=== PATIENT | male | born 1970 | race Caucasian/White ===

== ENCOUNTER 2020-04-08 14:15 | Emergency (ER) | payer BC ==
[2020-04-08] MEDS ORDERED: Adenosine 6 MG/2 ML SDV IVPUSH ONE ×2 (14:25→15:48)
[2020-04-08] MEDS ORDERED: Aspirin 81 MG Tab.Chew PO ONE (14:27)
[2020-04-08 14:58] LABS: ANION GAP 16.3 mEq/L (7-13); CHLORIDE,CL 103 mmol/L (98-107); SODIUM,NA 139 mmol/L (136-145)
[2020-04-08] MEDS ORDERED: Diltiazem IR 30 MG Tab PO ONE (15:33)
[2020-04-08] MEDS ORDERED: Sodium Chloride 0.9% 1,000 ML IV ONE (15:51)
[2020-04-08] MEDS ORDERED: Sodium Chloride 0.9% 500 ML IV SCH (16:00)
[2020-04-08] MEDS ORDERED: Metoprolol Tartrate 25 MG Tab PO ONE (16:12)
[2020-04-08 16:30] VITALS: BP 107/67; PULSE 80
--- NOTE | 2020-04-08 18:02 | EDM.PDOC ---
ED HPI GENERAL MEDICAL PROBLEM - General Chief Complaint: Cardiovascular Problem Stated Complaint: FAST HEAR RATE, SWEATING,DIZZY Time Seen by Provider: 04/08/20 14:25 Source of Information: Reports: Patient History Limitations: Reports: No Limitations - History of Present Illness INITIAL COMMENTS - FREE TEXT/NARRATIVE: ED with c/o heart racing, felt sweaty and dizzy while at work. Has has similar events previously but not as bad. Denied chest pain. No difficulty breathing. Prior [place] in 2016. Has seen cardiologists in [place] and [place]. - Related Data Allergies Allergy/AdvReac Type Severity Reaction Status Date / Time vancomycin Allergy Other Verified 04/08/20 14:24 Home Meds: Home Meds Aspirin [Aspirin EC] 81 mg PO DAILY 04/08/20 [History] atorvaSTATin Calcium [Atorvastatin Calcium] 80 mg PO BEDTIME 04/08/20 [History] Past Medical History - Past Health History Medical/Surgical History: Denies Medical/Surgical History Cardiovascular History: Reports: Heart Murmur, [place], Stents Other Musculoskeletal History: knee surgery - Infectious Disease History Infectious Disease History: Reports: Other (See Below) Other Infectious Disease History: Staph - Past Surgical History Cardiovascular Surgical History: Reports: Coronary Artery Stent Musculoskeletal Surgical History: Reports: Knee Replacement Social & Family History - Family History Family Medical History: No Pertinent Family History - Tobacco Use Tobacco Use Status *Q: Current Every Day Tobacco User Years of Tobacco use: 30 Packs/Tins Daily: 0.5 - Recreational Drug Use Recreational Drug Use: No ED ROS GENERAL - Review of Systems Review Of Systems: Comprehensive ROS is negative, except as noted in HPI. ED EXAM, GENERAL - Physical Exam Exam: See Below Exam Limited By: No Limitations General Appearance: Alert, Moderate Distress Throat/Mouth: Normal Inspection, Normal Voice Head: Atraumatic, Normocephalic Neck: Normal Inspection Respiratory/Chest: No Respiratory Distress, Lungs Clear Cardiovascular: Regular Rate, Rhythm, Tachycardia GI/Abdominal: Normal Bowel Sounds Back Exam: Normal Inspection Extremities: Normal Inspection, Normal Range of Motion Neurological: Alert, Oriented, Normal Cognition Psychiatric: Normal Affect, Normal Mood Skin Exam: Warm, Dry, Intact, Normal Color, No Rash Course - Vital Signs Last Recorded V/S: Last Vital Signs Temp 97.1 F 04/08/20 14:22 Pulse 80 04/08/20 16:29 Resp 20 04/08/20 14:22 BP 107/67 04/08/20 16:29 Pulse Ox 98 04/08/20 14:22 - Orders/Labs/Meds Labs: Laboratory Tests 04/08/20 04/08/20 04/08/20 Range/Units 14:26 14:26 14:26 WBC 10.6 H (5.0-10.0) 10^3/uL RBC 5.22 (4.6-6.2) 10^6/uL Hgb 15.4 (14.0-18.0) g/dL Hct 46.1 (40.0-54.0) % MCV 88.3 (80-100) fL MCH 29.5 (27.0-34.0) pg MCHC 33.4 (33.0-35.0) g/dL Plt Count 267 (150-450) 10^3/uL Neut % (Auto) 60.0 (42.2-75.2) % Lymph % (Auto) 27.9 (20.5-50.1) % [place] % (Auto) 8.4 H (2-8) % Eos % (Auto) 3.2 H (1.0-3.0) % Baso % (Auto) 0.5 (0.0-1.0) % D-Dimer, Quantitative 130 (0-400) ng/mL Sodium 139 (136-145) mmol/L Potassium 4.3 (3.5-5.1) mmol/L Chloride 103 (98-107) mmol/L Carbon Dioxide 24 (21-32) mmol/L Anion Gap 16.3 H (7-13) mEq/L BUN 17 (7-18) mg/dL Creatinine 1.10 (0.70-1.30) mg/dL Est Cr Clr Drug Dosing 71.69 mL/min Estimated GFR (MDRD) > 60 BUN/Creatinine Ratio 15.5 (No establ ref range) Glucose 104 H (74-99) mg/dL Calcium 9.0 (8.5-10.1) mg/dL Magnesium 1.9 (1.8-2.4) mg/dL Total Bilirubin 0.5 (0.2-1.0) mg/dL AST 17 (15-37) U/L ALT 24 (16-63) U/L Alkaline Phosphatase 143 H (46-116) U/L Troponin I < 0.017 (0.000-0.056) ng/mL Total Protein 7.4 (6.4-8.2) g/dL Albumin 3.8 (3.4-5.0) g/dL Globulin 3.6 Albumin/Globulin Ratio 1.1 Meds: Medications Discontinued Medications Generic Name Dose Route Start Last Admin Trade Name Kwesiq PRN Reason Stop Dose Admin Adenosine 6 mg 04/08/20 14:25 04/08/20 14:34 Adenocard IVPUSH 04/08/20 14:26 6 mg NOW ONE Administration Adenosine 6 mg 04/08/20 15:48 04/08/20 15:53 Adenocard IVPUSH 04/08/20 15:49 6 mg NOW ONE Administration Aspirin 324 mg 04/08/20 14:27 04/08/20 14:46 Aspirin PO 04/08/20 14:28 324 mg ONETIME ONE Administration Diltiazem HCl 30 mg 04/08/20 15:33 04/08/20 15:47 Cardizem PO 04/08/20 15:34 Not Given ONETIME ONE Sodium Chloride 1,000 mls @ 999 mls/hr 04/08/20 15:51 04/08/20 15:55 Normal Saline IV 04/08/20 16:51 Infused .BOLUS ONE Infusion Sodium Chloride 500 mls @ 999 mls/hr 04/08/20 16:00 04/08/20 16:57 Normal Saline IV Infused .BOLUS CAMERON Infusion Metoprolol Tartrate 25 mg 04/08/20 16:12 04/08/20 16:29 Lopressor PO 04/08/20 16:13 25 mg ONETIME ONE Administration - Re-Assessments/Exams Free Text/Narrative Re-Assessment/Exam: Adenosine 6mg given with result. Slight BP drop, improved with fluid bolus. Patient continues to deny chest pain. Resting. 04/08/20 1540 recurrence of SVT. No chest gilmore, not as dizzy as previous. Repeat Adenosine. TC Dr Rosas, recommend tx to [facility] Dr Coulter accepting. Tx via [facility]. Departure - Departure Time of Disposition: 16:55 Disposition: DC/Tfer to Acute Hospital 02 Reason for Transfer *Q: Other Condition: Good Clinical Impression: Paroxysmal supraventricular tachycardia Referrals: PCP,None [Primary Care Provider] - Forms: ED Department Discharge Sepsis Event Note (ED) - Evaluation Sepsis Screening Result: No Definite Risk - Focused Exam Vital Signs: Vital Signs Temp Pulse Pulse Resp BP BP Pulse Ox 04/08/20 16:29 80 107/67 04/08/20 14:22 97.1 F 206 H 20 101/64 98
== END 2020-04-08 16:57 ==
LOC: DL.ED 14:15
DX: I47.1 Supraventricular tachycardia (principal); I25.2 Old myocardial infarction; Z88.1 Allergy status to other antibiotic agents; Z72.0 Tobacco use; Z79.82 Long term (current) use of aspirin; Z79.899 Other long term (current) drug therapy
CPT/HCPCS: 36415; 80053; 83735; 84484; 85025; 85379; 93005; 96374; 96376; 99285; A9270; J0153; J7030; J7040; 99283

== ENCOUNTER 2020-08-21 16:27 | Emergency (ER) | payer BC ==
[2020-08-21] MEDS ORDERED: Adenosine 6 MG/2 ML SDV IVPUSH ONE (16:32)
[2020-08-21] MEDS ORDERED: Adenosine 6 MG/2 ML SDV ONE ×2 (16:33→16:36)
[2020-08-21] MEDS ORDERED: Sodium Chloride 0.9% 10 ML Syringe FLUSH PRN (16:47)
[2020-08-21 16:52] VITALS: BP 103/71; PULSE 180
--- NOTE | 2020-08-21 17:06 | EDM.PDOC ---
<Naomi Conn - Last Filed: 08/21/20 16:51> ED HPI GENERAL MEDICAL PROBLEM - General Chief Complaint: Cardiovascular Problem Stated Complaint: HEART RACING Time Seen by Provider: 08/21/20 16:55 - History of Present Illness INITIAL COMMENTS - FREE TEXT/NARRATIVE: Patient is a 49 year old male with a PMH significant for SVT treated with ablation who presents to the ED with his heart racing. - Related Data Allergies Allergy/AdvReac Type Severity Reaction Status Date / Time vancomycin Allergy Other Verified 08/21/20 16:52 Home Meds: Home Meds Aspirin [Aspirin EC] 81 mg PO DAILY 04/08/20 [History] atorvaSTATin Calcium [Atorvastatin Calcium] 80 mg PO BEDTIME 04/08/20 [History] Past Medical History - Past Health History Medical/Surgical History: Denies Medical/Surgical History Cardiovascular History: Reports: Heart Murmur, [place], Stents Other Musculoskeletal History: knee surgery - Infectious Disease History Infectious Disease History: Reports: Other (See Below) Other Infectious Disease History: Staph - Past Surgical History Cardiovascular Surgical History: Reports: Coronary Artery Stent Musculoskeletal Surgical History: Reports: Knee Replacement Social & Family History - Family History Family Medical History: No Pertinent Family History Departure - Departure Disposition: Home, Self-Care 01 Clinical Impression: Paroxysmal supraventricular tachycardia Instructions: Supraventricular Tachycardia, Adult Forms: ED Department Discharge Additional Instructions: Follow up with cardiology at the first available appointment. Return to ER if worse at any time. Sepsis Event Note (ED) - Evaluation Sepsis Screening Result: No Definite Risk <[email or web address] - Last Filed: 08/21/20 18:03> ED HPI GENERAL MEDICAL PROBLEM - General Source of Information: Reports: Patient, Family, Old Records, RN, RN Notes Reviewed History Limitations: Reports: No Limitations - History of Present Illness INITIAL COMMENTS - FREE TEXT/NARRATIVE: Pt presents to ER by POV with c/o sudden onset of heart racing and lightheadedness at 1600HRS. Denies CP. Pt reports Hx of SVT. In June he had an ablation at [facility]. This is the first episode since his ablation. Onset: Today, Sudden Duration: Constant Location: Reports: Chest Quality: Reports: Other (Denies pain) Severity: Moderate Improves with: Reports: None Worsens with: Reports: None Associated Symptoms: Reports: No Other Symptoms Social & Family History - Living Situation & Occupation Living situation: Reports: , with Spouse Occupation: Employed ED ROS GENERAL - Review of Systems Review Of Systems: Comprehensive ROS is negative, except as noted in HPI. ED EXAM, GENERAL - Physical Exam Exam: See Below Exam Limited By: No Limitations General Appearance: Alert, WD/WN, No Apparent Distress, Obese Eye Exam: Bilateral Eye: Normal Inspection Nose: Normal Inspection, Normal Mucosa, No Blood Throat/Mouth: Normal Inspection, Normal Lips, Normal Teeth, Normal Gums, Normal Oropharynx, Normal Voice, No Airway Compromise Head: Atraumatic, Normocephalic Neck: Normal Inspection, Supple, Non-Tender, Full Range of Motion Respiratory/Chest: No Respiratory Distress, Lungs Clear, Normal Breath Sounds, No Accessory Muscle Use, Chest Non-Tender Cardiovascular: Regular Rate, Rhythm, Tachycardia GI/Abdominal: Normal Bowel Sounds, Soft, Non-Tender Back Exam: Normal Inspection Extremities: Normal Inspection, Normal Range of Motion, Non-Tender, Normal Capillary Refill, No Pedal Edema Neurological: Alert, Oriented, CN II-XII Intact, Normal Cognition, Normal Gait, No Motor/Sensory Deficits Psychiatric: Normal Affect, Normal Mood Skin Exam: Warm, Dry, Intact, Normal Color, No Rash #1 Interpretation EKG Date: 08/21/20 Time: 16:37 Rhythm: Other (SR) Rate (Beats/Min): 94 Goff: Normal P-Wave: Present QRS: Normal ST-T: Other (Early repol.) QT: Normal Comparison: NA - No Prior EKG Course - Vital Signs Last Recorded V/S: Last Vital Signs Temp 96.7 F L 08/21/20 16:51 Pulse 180 H 08/21/20 16:51 Resp 18 08/21/20 16:51 BP 103/71 08/21/20 16:51 Pulse Ox 98 08/21/20 16:51 - Orders/Labs/Meds Orders: Active Orders 24 hr Category Date Time Status EKG 12 Lead [EKG Documentation Completion] [RC] STAT Care 08/21/20 16:32 Active Peripheral IV Care [RC] . DIRECTED Care 08/21/20 16:47 Active Sodium Chloride 0.9% [Saline Flush] Med 08/21/20 16:47 Active 10 ml FLUSH ASDIRECTED PRN Peripheral IV Insertion Adult [OM.PC] Stat Oth 08/21/20 16:47 Ordered Medication Orders Sodium Chloride (Sodium Chloride 0.9% 10 Ml Syringe) 10 ml FLUSH ASDIRECTED PRN PRN Reason: Keep Vein Open Last Admin: 08/21/20 17:06 Dose: 10 ml Documented by: BRANDON Labs: Laboratory Tests 08/21/20 08/21/20 08/21/20 Range/Units 16:57 16:57 16:57 WBC 9.3 (5.0-10.0) 10^3/uL RBC 4.91 (4.6-6.2) 10^6/uL Hgb 14.1 (14.0-18.0) g/dL Hct 44.2 (40.0-54.0) % MCV 90.0 (80-100) fL MCH 28.7 (27.0-34.0) pg MCHC 31.9 L (33.0-35.0) g/dL Plt Count 266 (150-450) 10^3/uL Neut % (Auto) 66.5 (42.2-75.2) % Lymph % (Auto) 23.4 (20.5-50.1) % [place] % (Auto) 7.5 (2-8) % Eos % (Auto) 2.2 (1.0-3.0) % Baso % (Auto) 0.4 (0.0-1.0) % Sodium 138 (136-145) mmol/L Potassium 4.3 (3.5-5.1) mmol/L Chloride 104 (98-107) mmol/L Carbon Dioxide 26 (21-32) mmol/L Anion Gap 12.3 (7-13) mEq/L BUN 18 (7-18) mg/dL Creatinine 1.14 (0.70-1.30) mg/dL Est Cr Clr Drug Dosing 76.66 mL/min Estimated GFR (MDRD) > 60 BUN/Creatinine Ratio 15.8 (No establ ref range) Glucose 102 H (70-99) mg/dL Calcium 8.6 (8.5-10.1) mg/dL Magnesium 2.2 (1.8-2.4) mg/dL Total Bilirubin 0.5 (0.2-1.0) mg/dL AST 15 (15-37) U/L ALT 25 (16-63) U/L Alkaline Phosphatase 121 H (46-116) U/L Troponin I High Sens 6 (<=76) pg/mL B-Natriuretic Peptide 23 (0-100) pg/ml Total Protein 7.2 (6.4-8.2) g/dL Albumin 3.3 L (3.4-5.0) g/dL Globulin 3.9 Albumin/Globulin Ratio 0.85 TSH, Ultra Sensitive 1.77 (0.36-3.74) uIU/mL Meds: Medications Generic Name Dose Route Start Last Admin Trade Name Freq PRN Reason Stop Dose Admin Sodium Chloride 10 ml 08/21/20 16:47 08/21/20 17:06 Sodium Chloride 0.9% 10 Ml Syringe FLUSH 10 ml ASDIRECTED PRN Administration Keep Vein Open Discontinued Medications Generic Name Dose Route Start Last Admin Trade Name Freq PRN Reason Stop Dose Admin Adenosine 12 mg 08/21/20 16:32 08/21/20 17:06 Adenosine 6 Mg/2 Ml Sdv IVPUSH 08/21/20 16:33 12 mg NOW ONE Administration Adenosine Confirm 08/21/20 16:33 08/21/20 17:06 Adenosine 6 Mg/2 Ml Sdv Administered 08/21/20 16:34 Not Given Dose 6 mg .ROUTE .STK-MED ONE Adenosine Confirm 08/21/20 16:36 08/21/20 17:06 Adenosine 6 Mg/2 Ml Sdv Administered 08/21/20 16:37 Not Given Dose 6 mg .ROUTE .STK-MED ONE - Re-Assessments/Exams Free Text/Narrative Re-Assessment/Exam: 08/21/20 17:49 I personally performed or re-performed the physical examination and medical decision making. I have verified all student documentation or findings, including history, physical exam and/or medical decision making. Departure - Departure Time of Disposition: 17:41 Condition: Good Sepsis Event Note (ED) - Focused Exam Vital Signs: Vital Signs Temp Pulse Resp BP Pulse Ox 08/21/20 16:51 96.7 F L 180 H 18 103/71 98 - My Orders Last 24 Hours: My Active Orders 08/21/20 16:32 EKG 12 Lead [EKG Documentation Completion] [RC] STAT 08/21/20 16:47 Peripheral IV Care [RC] . DIRECTED Sodium Chloride 0.9% [Saline Flush] 10 ml FLUSH ASDIRECTED PRN Peripheral IV Insertion Adult [OM.PC] Stat - Assessment/Plan Last 24 Hours: My Active Orders 08/21/20 16:32 EKG 12 Lead [EKG Documentation Completion] [RC] STAT 08/21/20 16:47 Peripheral IV Care [RC] . DIRECTED Sodium Chloride 0.9% [Saline Flush] 10 ml FLUSH ASDIRECTED PRN Peripheral IV Insertion Adult [OM.PC] Stat
--- NOTE | 2020-08-21 17:22 | CR ---
EXAMINATION: Chest 1V Frontal SEX: Male AGE: 49 years CLINICAL HISTORY: 49-year-old male emergency Department complaining of chest pain. Comparison 14 June 2010. 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 No acute new cardiopulmonary abnormality identified since 2011 comparison CXR. 1. Normal cardiac silhouette (size and configuration). No pulmonary vascular congestion, alveolar edema or dependent pleural effusion. 2. No new lung mass or hilar lymphadenopathy. 3. No alveolar infiltrates, atelectasis/collapse, or peripheral interstitial "groundglass" lung densities. 4. No pneumothorax or pneumomediastinum. Tracheobronchial airway unremarkable.
[2020-08-21 17:25] LABS: ANION GAP 12.3 mEq/L (7-13); CHLORIDE,CL 104 mmol/L (98-107); SODIUM,NA 138 mmol/L (136-145)
== END 2020-08-21 18:11 | disposition home or self-care (01) ==
LOC: DL.ED 16:27
DX: I47.1 Supraventricular tachycardia (principal); I25.2 Old myocardial infarction; Z79.899 Other long term (current) drug therapy; Z88.1 Allergy status to other antibiotic agents
CPT/HCPCS: 36415; 71045; 80053; 83735; 83880; 84443; 84484; 85025; 93005; 93010; 96374; 99284; 99285-25; J0153

== ENCOUNTER 2021-02-22 22:17 | Emergency (ER) | payer BC ==
[2021-02-22] MEDS ORDERED: Ketorolac 30 MG/ML SDV IM ONE ×2 (22:35→23:40)
[2021-02-22] MEDS ORDERED: Orphenadrine 60 MG/2 ML Inj IM ONE ×2 (22:36→23:40)
[2021-02-22 22:42] VITALS: BP 154/100; PULSE 109
--- NOTE | 2021-02-22 22:43 | EDM.PDOC ---
ED HPI GENERAL MEDICAL PROBLEM - General Chief Complaint: Upper Extremity Injury/Pain Stated Complaint: HAVING TROUBLE MOVING ENTIRE LEFT ARM Time Seen by Provider: 02/22/21 22:30 Source of Information: Reports: Patient, RN, RN Notes Reviewed History Limitations: Reports: No Limitations - History of Present Illness INITIAL COMMENTS - FREE TEXT/NARRATIVE: Be is a 50 y/o male who presents to the ED via personal vehicle with complaints of left anterior shoulder pain. The patient states his pain began this morning and has progressively worsened throughout the day. He charac terizes the pain as sharp, worse with extension of the shoulder joint. He states he is unable to move the left extremity due to pain. He denies history of injury to the left shoulder, neck, upper, back, or falls. He denies loss of sensory function to the left upper extremity. He has taken one dose of acetaminophen with mild alleviation in symptoms, however the pain has returned. The patient was able to throw darts with his right arm tonight, however presented after as the pain to his left shoulder became too great. He attests to drinking two 16oz beers tonight; he denies tobacco or recreational drug use. Left Arm Pain Score (Numeric/FACES): 10 - Related Data Allergies Allergy/AdvReac Type Severity Reaction Status Date / Time vancomycin Allergy Other Verified 02/22/21 22:35 Home Meds: Home Meds Aspirin [Aspirin EC] 81 mg PO DAILY 04/08/20 [History] atorvaSTATin Calcium [Atorvastatin Calcium] 80 mg PO BEDTIME 04/08/20 [History] Past Medical History - Past Health History Medical/Surgical History: Denies Medical/Surgical History Cardiovascular History: Reports: Heart Murmur, [place], Stents Other Musculoskeletal History: knee surgery - Infectious Disease History Infectious Disease History: Reports: Other (See Below) Other Infectious Disease History: Staph - Past Surgical History Cardiovascular Surgical History: Reports: Coronary Artery Stent Musculoskeletal Surgical History: Reports: Knee Replacement Social & Family History - Family History Family Medical History: No Pertinent Family History - Living Situation & Occupation Living situation: Reports: , with Spouse Occupation: Employed Review of Systems - Review of Systems Review Of Systems: Comprehensive ROS is negative, except as noted in HPI. ED EXAM, GENERAL - Physical Exam Exam: See Below Exam Limited By: No Limitations General Appearance: Alert, Mild Distress (Pain to left anterior shoulder) Eye Exam: Bilateral Eye: EOMI, Normal Inspection, PERRL (3mm) Ears: Normal External Exam, Hearing Grossly Normal Nose: Normal Inspection Throat/Mouth: Normal Inspection, Normal Oropharynx, Normal Voice, No Airway Compromise Head: Atraumatic, Normocephalic Neck: Normal Inspection, Supple, Non-Tender, Full Range of Motion. No: Tender Lateral, Tender Midline Respiratory/Chest: No Respiratory Distress, Lungs Clear, Normal Breath Sounds, No Accessory Muscle Use, Chest Non-Tender. No: Crackles, Rales, Rhonchi, Wheezing, Stridor Cardiovascular: Normal Peripheral Pulses, Regular Rate, Rhythm, No Edema, No Gallop, No JVD, No Murmur, No Rub Peripheral Pulses: 2+: Radial (L), Radial (R), Dorsalis Pedis (L), Dorsalis Pedis (R) GI/Abdominal: Normal Bowel Sounds, Soft, No Distention, No Abnormal Bruit, No Mass, Pelvis Stable (Male) Exam: Deferred Rectal (Males) Exam: Deferred Back Exam: Normal Inspection, Full Range of Motion Extremities: No Pedal Edema, Normal Capillary Refill, Arm Pain (To left anterior shoulder; Increased with palpation), Limited Range of Motion (To left upper extremity). No: Joint Swelling, Increased Warmth, Mottled, Pallor, Redness Neurological: Alert, Oriented, CN II-XII Intact, Normal Cognition, Normal Gait, No Motor/Sensory Deficits Psychiatric: Normal Affect, Normal Mood Skin Exam: Warm, Dry, Intact, Normal Color, No Rash. No: Cyanosis, Ecchymosis, Erythema, Jaundice, Mottled, Pallor, Petechiae Lymphatic: No Adenopathy Course - Vital Signs Last Recorded V/S: Last Vital Signs Temp 97.8 F 02/22/21 22:29 Pulse 109 H 02/22/21 22:29 Resp 20 02/22/21 22:29 BP 154/100 H 02/22/21 22:29 Pulse Ox 96 02/22/21 22:29 - Orders/Labs/Meds Meds: Medications Discontinued Medications Generic Name Dose Route Start Last Admin Trade Name Freq PRN Reason Stop Dose Admin Fentanyl 50 mcg 02/23/21 00:07 02/23/21 00:16 Fentanyl 100 Mcg/2 Ml Sdv IVPUSH 02/23/21 00:08 50 mcg ONETIME ONE Administration Protocol Ketorolac Tromethamine 30 mg 02/22/21 22:35 Ketorolac 30 Mg/Ml Sdv IM 02/22/21 22:36 ONETIME ONE Ketorolac Tromethamine 30 mg 02/22/21 23:40 02/22/21 23:49 Ketorolac 30 Mg/Ml Sdv IM 02/22/21 23:41 30 mg ONETIME ONE Administration Lidocaine HCl 30 ml 02/22/21 22:49 Lidocaine 1% 30 Ml Sdv INJECT 02/22/21 22:50 ONETIME ONE Orphenadrine Citrate 60 mg 02/22/21 22:36 Orphenadrine 60 Mg/2 Ml Inj IM 02/22/21 22:37 ONETIME ONE Orphenadrine Citrate 60 mg 02/22/21 23:40 02/22/21 23:50 Orphenadrine 60 Mg/2 Ml Inj IM 02/22/21 23:41 60 mg ONETIME ONE Administration Triamcinolone Acetonide 40 mg 02/22/21 22:48 Triamcinolone Acetonide 40 Mg/Ml 1 Ml Sdv INJECT 02/22/21 22:49 ONETIME ONE - Radiology Interpretation Free Text/Narrative:: [facility] Final Radiology Report Call: [phone] assistance Online chat: [email or web address] Name: BE ZAFAR Age: 50Years M Date: 02/22/2021 SSN: -- : [id number] Study: CR SHOULDER COMP LT Requesting Physician: Jessica Mojica Images: 3 Addl Studies: Provided Clinical History: Severe pain to anterior shoulder Contrast: Contrast Medium: Contrast Amount: Contrast Method: CONFIDENTIALITY STATEMENT This report is intended only for use by the referring physician, and only in accordance with law. If you received this in error, call [phone]. Page 1 of 1 PROCEDURE INFORMATION: Exam: XR Left Shoulder Exam date and time: 02/22/2021 10:44 PM Age: 50 years old Clinical indication: Other: Severe pain to anterior shoulder TECHNIQUE: Imaging protocol: XR Left shoulder. Views: 2 or more views. COMPARISON: No relevant prior studies available. FINDINGS: Limitations: Difficulty with positioning. Bones/joints: Humeral head appears to be inferiorly subluxed on some of the images. Lungs: Partially included lungs are clear. Soft tissues: No radiopaque foreign body. IMPRESSION: Given the appearance of the humeral head in relation to the glenoid fossa, there may be a partial intermittent anterior dislocation at the left shoulder. Findings may be artifactual given projection and positioning. In the appropriate clinical setting further assessment may be considered with CT as clinically warranted. Thank you for allowing us to participate in the care of your patient. Dictated and Authenticated by: Judie Santana MD 02/22/2021 11:53 PM Central Time ([place] & [place]) - Re-Assessments/Exams Free Text/Narrative Re-Assessment/Exam: 02/22/21 Xray left shoulder obtained. Orphenadrine 60mg IM and Ketorolac 30mg IM administered. Findings of examination and imaging reviewed with patient. Supportive cares discussed. Patient instructed to follow up with primary care provider in in 1-2 days regarding todays visit. Red flag signs and symptoms which would warrant immediate reevaluation reviewed. Patient verbalized understanding and agreement with the plan of care. Departure - Departure Time of Disposition: 00:39 Disposition: Home, Self-Care 01 Condition: Good Clinical Impression: Deformity of left shoulder joint, Left anterior shoulder pain - Discharge Information *PRESCRIPTION DRUG MONITORING PROGRAM REVIEWED*: Not Applicable *COPY OF PRESCRIPTION DRUG MONITORING REPORT IN PATIENT LIS: Not Applicable Instructions: Shoulder Pain, How to use a Sling, [id number] Forms: ED Department Discharge Additional Instructions: 1.) Follow up with your primary care provider tomorrow regarding today's visit. 2.) You may take ibuprofen (Advil/Motrin) 400-800mg every six hours, as pain and swelling persist. You may also take acetaminophen (Tylenol) 650-1000mg every six hours, as pain persists. You may stagger these medications so you are taking a dose of either every three hours. 3.) You may apply cold compresses to the area as pain and swelling persist, 20 minutes every hour. 4.) You may apply BioFreeze (or a similar ointment/cream) to the affected area, as pain persists. Sepsis Event Note (ED) - Focused Exam Vital Signs: Vital Signs Temp Pulse Resp BP Pulse Ox 02/22/21 22:29 97.8 F 109 H 20 154/100 H 96
[2021-02-22] MEDS ORDERED: Triamcinolone Acetonide 40 MG/ML 1 ML SDV INJECT ONE (22:48)
[2021-02-22] MEDS ORDERED: Lidocaine 1% 30 ML SDV INJECT ONE (22:49)
--- NOTE | 2021-02-22 23:54 | CR ---
PROCEDURE INFORMATION: Exam: XR Left Shoulder Exam date and time: 02/22/2021 10:44 PM Age: 50 years old Clinical indication: Other: Severe pain to anterior shoulder TECHNIQUE: Imaging protocol: XR Left shoulder. Views: 2 or more views. COMPARISON: No relevant prior studies available. FINDINGS: Limitations: Difficulty with positioning. Bones/joints: Humeral head appears to be inferiorly subluxed on some of the images. Lungs: Partially included lungs are clear. Soft tissues: No radiopaque foreign body. IMPRESSION: Given the appearance of the humeral head in relation to the glenoid fossa, there may be a partial intermittent anterior dislocation at the left shoulder. Findings may be artifactual given projection and positioning. In the appropriate clinical setting further assessment may be considered with CT as clinically warranted.
[2021-02-23] MEDS ORDERED: fentaNYL 100 MCG/2 ML SDV IVPUSH ONE (00:07)
== END 2021-02-23 00:56 | disposition home or self-care (01) ==
LOC: DL.ED 22:17
DX: M21.922 Unspecified acquired deformity of left upper arm (principal); I25.2 Old myocardial infarction; Z95.5 Presence of coronary angioplasty implant and graft; Z88.1 Allergy status to other antibiotic agents; Z79.82 Long term (current) use of aspirin; Z79.899 Other long term (current) drug therapy
CPT/HCPCS: 73030-LT; 96372; 96374; 99283-25; J1885; J2360; J3010

== ENCOUNTER 2021-09-10 09:22 | Emergency (ER) | payer OTHER, BC ==
[2021-09-10 10:14] VITALS: BP 90/61; PULSE 89
== END 2021-09-10 11:11 | disposition home or self-care (01) ==
LOC: DL.ED 09:22
DX: S60.212A Contusion of left wrist, initial encounter (principal); S20.229A Contusion of unspecified back wall of thorax, initial encounter; E78.00 Pure hypercholesterolemia, unspecified; I25.2 Old myocardial infarction; Z88.1 Allergy status to other antibiotic agents; V89.2XXA Person injured in unspecified motor-vehicle accident, traffic, initial encounter
CPT/HCPCS: 72070; 73100-LT; 99283

== ENCOUNTER 2022-01-07 18:24 | Emergency (ER) | payer BC, OTHER ==
[2022-01-07] MEDS ORDERED: Lidocaine 1% 10 ML MDV INJECT ONE (19:56)
[2022-01-07] MEDS ORDERED: Bacitracin Oint 1 GM U/D Packet TOP ONE (19:56)
[2022-01-07] MEDS ORDERED: Diphtheria,Pertussis(Acell),Tetanus Vaccine 0.5 ML Syringe IM ONE (19:56)
[2022-01-07 23:10] VITALS: BP 132/87; PULSE 77
== END 2022-01-07 20:35 | disposition home or self-care (01) ==
LOC: DL.ED 18:24
DX: S61.210A Laceration without foreign body of right index finger without damage to nail, initial encounter (principal); Z23 Encounter for immunization; Z88.1 Allergy status to other antibiotic agents; Z79.82 Long term (current) use of aspirin; Z79.899 Other long term (current) drug therapy; W26.8XXA Contact with other sharp object(s), not elsewhere classified, initial encounter
CPT/HCPCS: 12001; 90471; 90715; 99282-25